=== PATIENT | female | born 1995 | race Caucasian/White ===

== ENCOUNTER 2017-09-17 04:56 | Emergency (ER) | payer OTHER ==
[2017-09-17] MEDS: LIDOCAINE 1% (MDV) 20 ML INJ SC (06:58)
[2017-09-17] MEDS: IBUPROFEN 800 MG TAB PO (07:36)
== END 2017-09-17 11:02 | disposition home or self-care (01) ==
LOC: E/R 04:56
DX: S61.411A Laceration without foreign body of right hand, initial encounter (principal); F10.10 Alcohol abuse, uncomplicated; F17.210 Nicotine dependence, cigarettes, uncomplicated; R40.2142 Coma scale, eyes open, spontaneous, at arrival to emergency department; R40.2252 Coma scale, best verbal response, oriented, at arrival to emergency department; R40.2362 Coma scale, best motor response, obeys commands, at arrival to emergency department; W25.XXXA Contact with sharp glass, initial encounter; Y92.9 Unspecified place or not applicable
CPT/HCPCS: 12002; 73130-RT; 99283-25

== ENCOUNTER 2017-10-03 12:37 | Emergency (ER) | payer OTHER ==
[2017-10-03 14:11] LABS: ADD MAN DIFF? NO
[2017-10-03 14:17] LABS: WHITE BLOOD COUNT 10.5 10^3/ul (4.8-10.8)
[2017-10-03 14:17] LABS: BASOPHILS % 0.4 % (0.0-2.0); EOSINOPHILS % 0.1 % (0.0-7.0); HEMATOCRIT 39.7 % (37.0-47.0); HEMOGLOBIN 12.8 g/dl (12.0-16.0); LYMPHOCYTES # 1.5 10^3/ul (0.8-2.9); LYMPHOCYTES % 14.2 % (18.0-55.0); MEAN CORPUSCULAR HGB CONC 32.2 g/dl (32.0-37.0); MEAN CORPUSCULAR VOLUME 86.9 fl (72.0-104.0); MEAN PLATELET VOLUME 10.3 fl (7.4-10.4); MONOCYTE # 0.6 10^3/ul (0.3-0.9); MONOCYTES % 6.1 % (0.0-13.0); NEUTROPHIL # 8.2 10^3/ul (1.6-7.5); NEUTROPHILS % 78.4 % (30.0-74.0); PLATELET COUNT 313 10^3/UL (140-415); RED BLOOD COUNT 4.57 10^6/ul (4.20-5.40)
[2017-10-03] MEDS: morphine 4 MG/ML VIAL IV (14:26)
[2017-10-03] MEDS: SOD CHLORIDE 0.9% 1,000 ML IV (14:26)
[2017-10-03] MEDS: CEFAZOLIN 1 GM/50 ML (PMX) 50 ML IVPB (14:26)
[2017-10-03] MEDS: ONDANSETRON 4 MG INJ IV ×2 (14:26→17:52)
[2017-10-03 14:36] LABS: ANION GAP 17 (8-16); BLOOD UREA NITROGEN 9 mg/dl (7-20); CALCIUM 9.5 mg/dl (8.4-10.2); CARBON DIOXIDE 22 mmol/L (21-31); CHLORIDE 107 mmol/L (97-110); CREATININE 0.49 mg/dl (0.44-1.00); GLUCOSE 102 mg/dl (70-220); POTASSIUM 3.8 mmol/L (3.5-5.1); SODIUM 142 mmol/L (135-144)
[2017-10-03 14:49] LABS: TROPONIN-I < 0.012 ng/ml (0.00-0.12)
[2017-10-03 15:28] LABS: AMPHETAMINE/METHAMPHETAMINE Negative (NEGATIVE); BARBITURATES Negative (NEGATIVE); BENZODIAZEPINES Negative (NEGATIVE); CANNABINOIDS Positive (NEGATIVE); COCAINE Negative (NEGATIVE); OPIATES Negative (NEGATIVE)
[2017-10-03] MEDS: HYDROmorphONE 1 MG/ML SYG IV ×2 (16:38→17:52)
== END 2017-10-04 00:52 | disposition short-term general hospital (02) ==
LOC: E/R 10-04 01:29 → FTE 12:37
DX: S01.81XA Laceration without foreign body of other part of head, initial encounter (principal); F17.210 Nicotine dependence, cigarettes, uncomplicated; R55 Syncope and collapse; W10.9XXA Fall (on) (from) unspecified stairs and steps, initial encounter; Y92.9 Unspecified place or not applicable
CPT/HCPCS: 36415; 70450; 70486; 80048; 80307; 84484; 85025; 93005; 96374; 96375; 96376; 99285-25